=== PATIENT | female | born 1965 | race Two or more races ===

== ENCOUNTER 2018-01-31 08:43 | Outpatient (CLI) | payer OTHER | END 2018-01-31 08:54 | disposition home or self-care (01) | LOC: LAB 08:43 | DX: R00.2 Palpitations (principal); I11.9 Hypertensive heart disease without heart failure; E78.2 Mixed hyperlipidemia; R40.1 Stupor ==

== ENCOUNTER 2018-10-06 10:10 | Emergency (ER) | payer OTHER ==
[~2018-10-06] VITALS: Ht 170.2 cm; Wt 79.4 kg
== END 2018-10-06 13:33 | disposition home or self-care (01) ==
LOC: ER 10:10
DX: R10.32 Left lower quadrant pain (principal)

== ENCOUNTER 2018-12-05 17:39 | Emergency (ER) | payer OTHER ==
[~2018-12-05] VITALS: Ht 170.2 cm; Wt 77.1 kg
== END 2018-12-05 21:52 | disposition home or self-care (01) ==
LOC: ER 17:39
DX: J11.1 Influenza due to unidentified influenza virus with other respiratory manifestations (principal)

== ENCOUNTER 2023-10-03 10:24 | Outpatient (CLI) | payer OTHER ==
[2023-10-03] MEDS ORDERED: ALTACE5 MG PO (12:46)
== END 2023-10-03 10:40 | disposition home or self-care (01) ==
LOC: RAD 10:24
PROVIDERS: ATTEND Obstetrics & Gynecology Gynecology
DX: M79.642 Pain in left hand (principal)

== ENCOUNTER 2023-10-03 12:10 | Emergency (ER) | payer OTHER ==
[~2023-10-03] VITALS: Ht 170.2 cm; Wt 76.2 kg
[2023-10-03] MEDS ORDERED: ALTACE5 MG PO (12:46)
== END 2023-10-03 14:15 | disposition home or self-care (01) ==
LOC: ER 12:10
DX: S52.132A Displaced fracture of neck of left radius, initial encounter for closed fracture (principal); Z88.6 Allergy status to analgesic agent

== ENCOUNTER 2023-10-31 07:39 | Outpatient (CLI) | payer OTHER ==
[~2023-10-31 07:39] MED LIST: ALTACE5 MG PO
== END 2023-10-31 07:40 | disposition home or self-care (01) ==
LOC: RAD 07:39
DX: S52.502A Unspecified fracture of the lower end of left radius, initial encounter for closed fracture (principal); Z88.6 Allergy status to analgesic agent

== ENCOUNTER 2025-03-03 14:46 | Emergency (ER) | payer OTHER ==
[~2025-03-03] VITALS: Ht 170.2 cm; Wt 72.6 kg
[2025-03-03] MEDS ORDERED: [UNRECOGNIZED DRUG - OTHER] (14:59)
[2025-03-03] MEDS ORDERED: ORPHENADRINE CITRATE 30 MG/ML AMPUL IM ONE (15:30)
[2025-03-03] MEDS ORDERED: NORFLEX100MG PO (17:40)
[2025-03-03] MEDS ORDERED: DEXAMETHASONE SODIUM PHOSP/PF 10 MG/ML VIAL IJ ONE (17:45)
[2025-03-03] MEDS ORDERED: DEXAMETHASONE SODIUM PHOSPHATE 4 MG/ML VIAL IM ONE (18:30)
== END 2025-03-03 19:53 | disposition home or self-care (01) ==
LOC: ER 16:16
DX: M54.2 Cervicalgia (principal); Z88.6 Allergy status to analgesic agent; I10 Essential (primary) hypertension